=== PATIENT | female | born 1970 | race Caucasian/White ===

== ENCOUNTER 2022-12-16 21:46 | Emergency (ER) | payer OTHER ==
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
[2022-12-16 23:38] LABS: Absolute Neutrophil Ct (ANC) 7.01 x10^3/uL (1.4-6.9); BASOPHIL % 0.5 % (0.0-0.4); Basophil (Absolute #) 0.05 x10^3/uL (0-0.4); Eosinophil % 0.1 % (0.00-5.0); Eosinophil (Absolute #) 0.01 x10^3/uL (0-0.5); Hematocrit 40.9 % (35-47); Hemoglobin 13.6 g/dL (12.0-16.0); IMMATURE GRAN # 0.04 x10^3u/L (0.00-0.03); IMMATURE GRAN % 0.4 % (0.00-0.4); Lymphocyte (Absolute #) 2.15 x10^3/uL (1.0-4.6); Lymphocytes % 21.6 % (24.0-44.0); Mean Cell Volume 93.6 fL (78-100); Mean Corpuscular Hemoglobin 31.1 pg (26-32); Mean Corpuscular Hgb Concent. 33.3 g/dL (32-36); Mean Platelet Volume 8.5 fL (7.5-11.0); Neutrophil % 70.4 % (36.0-66.0); Platelet Count 233 x10^3/uL (150-450); Red Blood Count 4.37 x10^6/uL (4.1-5.4); Red Cell Distribution Width 13.1 % (11.5-14.0)
[2022-12-16 23:53] LABS: ALBUMIN 4.5 g/dL (3.5-5.0); ALKALINE PHOSPHATASE 90 U/L (38-126); ANION GAP 12.2 MEQ/L (5-15); BLOOD UREA NITROGEN 12 mg/dL (7-17); CHLORIDE 105 mmol/L (98-107); Calcium 9.8 mg/dL (8.4-10.2); Carbon Dioxide 29 mmol/L (22-30); Creatinine 1 0.71 mg/dL (0.52-1.04); EST GLOMERULAR FILTRATION RATE > 60.0 ML/MIN; Glucose 103 mg/dL (74-106); Potassium 4.3 mmol/L (3.5-5.1); SGOT/AST 34 U/L (14-36); SGPT/ALT 24 U/L (0-35); SODIUM 142 mmol/L (137-145); Total Protein 7.7 g/dL (6.3-8.2)
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
[2022-12-17] MEDS ORDERED: Ntg 0.2MG/Ml in D5W GLASS*** 250 ML IV PRN (00:38)
[2022-12-17] MEDS ORDERED: HEPARIN 5000 UNITS/0.5 ML (HIGH RISK MED) ONE (00:47)
[2022-12-17] MEDS ORDERED: Heparin 25,000 units/D5W: USE ORDER SET PROTO 25,000 UNITS/250 ML BAG IV ONE (00:47)
[2022-12-17] MEDS ORDERED: Ntg 0.2MG/Ml in D5W GLASS*** 250 ML IV ONE (00:48)
[2022-12-17] MEDS: HEPARIN 5000 UNITS/0.5 ML (HIGH RISK MED) IV STA ×2 (00:49→01:17)
[2022-12-17 00:59] LABS: Mean Cell Volume 94.4 fL (78-100); Mean Corpuscular Hemoglobin 31.5 pg (26-32); Mean Corpuscular Hgb Concent. 33.3 g/dL (32-36); Mean Platelet Volume 8.6 fL (7.5-11.0); Platelet Count 237 x10^3/uL (150-450); Red Blood Count 4.45 x10^6/uL (4.1-5.4); Red Cell Distribution Width 13.2 % (11.5-14.0); White Blood Count 9.5 x10^3/uL (4.0-10.5)
[2022-12-17] MEDS ORDERED: Heparin 25,000 units/D5W: USE ORDER SET PROTO 25,000 UNITS/250 ML BAG IV SCH (01:00)
[2022-12-17 01:14] LABS: INR 1.05 (0.8-3.0); PROTIME 11.4 SECONDS (9.4-12.5); PTT 27.8 SECONDS (25.1-36.5)
[2022-12-17 01:28] VITALS: BP 124/79; PULSE 85; O2SAT 95
[2022-12-17] MEDS ORDERED: MORPHINE SULFATE 2 MG INJ IV ONE (01:46)
[2022-12-17] MEDS ORDERED: MORPHINE SULFATE 2 MG INJ ONE (01:50)
== END 2022-12-17 01:58 | disposition short-term general hospital (02) ==
LOC: ED 21:46
DX: S50.02XA Contusion of left elbow, initial encounter (principal); S50.811A Abrasion of right forearm, initial encounter; S26.91XA Contusion of heart, unspecified with or without hemopericardium, initial encounter; Y04.2XXA Assault by strike against or bumped into by another person, initial encounter; R07.89 Other chest pain; R94.31 Abnormal electrocardiogram [ECG] [EKG]; J43.9 Emphysema, unspecified; R91.8 Other nonspecific abnormal finding of lung field; R77.8 Other specified abnormalities of plasma proteins; I24.9 Acute ischemic heart disease, unspecified; I21.4 Non-ST elevation (NSTEMI) myocardial infarction; Z72.0 Tobacco use
CPT/HCPCS: 36000; 36415; 71250; 80053; 83880; 84484; 85025; 85027; 85610; 85730; 93005; 96374; 99285; J1644; J2270